=== PATIENT | male | born 1970 | race Caucasian/White ===

== ENCOUNTER 2025-06-29 06:23 | Day surgery (SDC) | payer OTHER, SELFPAY | END 2025-06-29 12:03 | disposition home or self-care (01) | LOC: GI 06:23 | PROVIDERS: ATTENDING PHYSICIAN Internal Medicine Gastroenterology | DX: Z12.11 Encounter for screening for malignant neoplasm of colon (principal); K64.8 Other hemorrhoids; K57.30 Diverticulosis of large intestine without perforation or abscess without bleeding; R13.10 Dysphagia, unspecified; K22.2 Esophageal obstruction; K44.9 Diaphragmatic hernia without obstruction or gangrene; K20.90 Esophagitis, unspecified without bleeding; K22.82 Esophagogastric junction polyp; K29.70 Gastritis, unspecified, without bleeding; D13.1 Benign neoplasm of stomach; Z80.0 Family history of malignant neoplasm of digestive organs | CPT/HCPCS: 43249; 43239; G0121; 88305; 88342 ==